=== PATIENT | female | born 1970 | race Caucasian/White ===

== ENCOUNTER 2022-09-17 11:18 | Emergency (ER) | payer SELFPAY ==
[~2022-09-17] VITALS: Ht 160 cm; Wt 72.6 kg
[2022-09-17 11:27] VITALS: BP 151/70
[2022-09-17 12:13] LABS: HEMATOCRIT 44.4 % (37.0-47.0); MEAN CELL VOLUME 89.7 fl (81.0-99.0); MEAN CORPUSCULAR HGB 28.9 pg (27.0-31.0); MEAN CORPUSCULAR HGB CONC 32.2 g/dl (33.0-37.0); MEAN PLATELET VOLUME 12.6 fl (9.6-12.3); PLATELET COUNT AUTOMATED 186 10*3/uL (130-400); RED BLOOD COUNT 4.95 10*6/uL (4.10-5.10); RED CELL DISTRI WIDTH 12.9 % (0-14.5); WHITE BLOOD COUNT 12.8 10*3/uL (4.8-10.8)
[2022-09-17 12:14] LABS: MANUAL DIFF REFLEX YES
[2022-09-17 12:30] LABS: ALKALINE PHOSPHATASE 85 U/L (45-117); BUN 16 mg/dl (7-24); CHLORIDE 106 mmol/L (98-107); CREATININE 0.85 mg/dL (0.55-1.02); LIPASE 108 U/L (73-393); POTASSIUM 3.6 mmol/L (3.5-5.1); SGOT/AST 14 IU/L (3-35); SGPT/ALT 18 U/L (12-78); SODIUM 137 mmol/L (136-145); TOTAL PROTEIN 7.8 gm/dL (6.4-8.2)
[2022-09-17 12:31] LABS: OVALOCYTES FEW; PLATELET SUFFICIENCY NORMAL (NORMAL); POLYCHROMASIA SLIGHT; TOTAL CELLS COUNTED 100 #CELLS
[2022-09-17 15:10] LABS: BILIRUBIN Negative (Negative); BLOOD 3+ (Negative); CLARITY Clear (Clear); COLOR Yellow (Yellow); GLUCOSE Negative (Negative); KETONE Negative (Negative); LEUKO ESTERASE Negative (Negative); NITRITE Negative (Negative); SPECIFIC GRAVITY >= 1.030 (1.001-1.030); UROBILINOGEN 0.2 E.U./dl (0.0-1.0)
[2022-09-17 15:28] LABS: BACTERIA TRACE; RBC 51-100 rbc/hpf (0-2)
[2022-09-17] MEDS ORDERED: Motrin,Rufen800 MG PO (15:37)
[2022-09-17] MEDS ORDERED: FLOMAX0.4 MG PO (15:37)
[2022-09-17] MEDS ORDERED: ONDANSETRON4 MG SL (15:37)
[2022-09-17] MEDS ORDERED: HYDROCODONE-AC1 EAC1 PO (15:51)
== END 2022-09-17 16:10 | disposition home or self-care (01) ==
LOC: ED 11:18
PROVIDERS: Physician Assistant
DX: N13.2 Hydronephrosis with renal and ureteral calculous obstruction (principal)